=== PATIENT | female | born 2005 | race Caucasian/White ===

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

== ENCOUNTER 2025-07-11 17:14 | Emergency (ER) | payer BC ==
[2025-07-11] MEDS ORDERED: Naloxone 0.4 MG/ML SDV IVPUSH PRN (18:00)
[2025-07-11 18:10] LABS: BASOPHILS ABSOLUTE AUTO 0.0 K/mm3 (0.0-0.3); BASOPHILS PERCENT AUTO 0.3 % (0.0-1.0); EOSINOPHILS ABSOLUTE AUTO 0.1 K/mm3 (0.0-0.7); EOSINOPHILS PERCENT AUTO 1.0 % (0.0-5.0); IMMATURE GRAN ABSOLUTE AUTO 0.03 K/mm3 (0.00-0.05); IMMATURE GRAN PERCENT AUTO 0.3 % (0.0-0.4); LYMPHOCYTES ABSOLUTE AUTO 3.0 K/mm3 (2.0-8.8); LYMPHOCYTES PERCENT AUTO 28.3 % (50.0-65.0); MEAN PLATELET VOLUME 10.1 fl (9.4-12.3); MONOCYTES ABSOLUTE AUTO 0.7 K/mm3 (0.1-1.4); MONOCYTES PERCENT AUTO 6.3 % (2.0-10.0); NEUTROPHILS ABSOLUTE AUTO 6.7 K/mm3 (1.5-8.5); NEUTROPHILS PERCENT AUTO 63.8 % (35.0-45.0); NRBC ABSOLUTE 0.00 (0.00-0.03); NRBC PERCENT 0.0 % (0.0-0.2); PLATELET COUNT,PLT 426 K/mm3 (150-400); RED BLOOD CELL COUNT 4.93 M/mm3 (4.10-5.30); WHITE BLOOD CELL COUNT,WBC 10.56 K/mm3 (4.5-13.5)
[2025-07-11] MEDS: Ondansetron 4 MG/2 ML SDV IVPUSH ONE (18:12)
[2025-07-11] MEDS: Sodium Chloride 0.9% 10 ML Syringe FLUSH PRN (18:15)
[2025-07-11 18:17] LABS: A/G RATIO 1.1 (1-2); ALANINE AMINOTRANSFERASE,ALT 24.0 U/L (14-59); ASPARTATE AMNIOTRANSFERASE,AST 13.0 U/L (15-37); BILIRUBIN TOTAL 0.6 mg/dL (0.2-1.0); BLOOD UREA NITROGEN,BUN 10.0 mg/dL (7-18); CARBON DIOXIDE,CO2 25.0 mEq/L (21-32); CHLORIDE,CL 106.0 mEq/L (98-107); CREATININE 0.9 mg/dL (0.55-1.02); EST CRCL DRUG DOSING (CG) 83.17 mL/min; ESTIMATED GFR 94.0 mL/min (>60); GLUCOSE RANDOM 113.0 mg/dL (70-99); POTASSIUM,K 3.4 mEq/L (3.5-5.1); PROTEIN TOTAL,TP 7.5 g/dl (6.4-8.2); SODIUM,NA 142.0 mEq/L (136-145)
[2025-07-11 18:22] LABS: LACTIC ACID 2.9 mmol/L (0.4-2.0)
[2025-07-11] MEDS: Ketorolac 30 MG/ML SDV IVPUSH ONE (18:37)
[2025-07-11 19:47] LABS: APPEARANCE,URINE SLT CLOUDY (Clear); GLUCOSE,URINE 1+ (Negative); OCCULT BLOOD,URINE 2+ (Negative)
[2025-07-11 20:01] LABS: SQUAMOUS EPITHELIAL CELLS,UR 0-5 /hpf (0-5)
== END 2025-07-11 21:33 | disposition home or self-care (01) ==
LOC: JD.ED 17:14
DX: N13.2 Hydronephrosis with renal and ureteral calculous obstruction (principal); N39.0 Urinary tract infection, site not specified; J45.909 Unspecified asthma, uncomplicated; Z79.899 Other long term (current) drug therapy
CPT/HCPCS: 36415; 74176; 80053; 81001; 83605; 85025; 86140; 87086; 96361; 96374; 96375; 99284; A9270; J1885; J2405; J7030; J1171